=== PATIENT | male | born 1960 | race Caucasian/White ===

== ENCOUNTER 2020-01-06 11:33 | Emergency (ER) | payer SELFPAY ==
[2020-01-06] MEDS ORDERED: Acetaminophen/oxyCODONE 325-5 MG Tab PO ONE (12:05)
[2020-01-06] MEDS ORDERED: Ketorolac 60 MG/2 ML SDV IM ONE (12:06)
[2020-01-06] MEDS ORDERED: Lidocaine 1% PF 2 ML SDV INJECT ONE (12:38)
[2020-01-06] MEDS ORDERED: Lidocaine 1% 2 ML ONE (12:39)
--- NOTE | 2020-01-06 13:10 | CR ---
Indication: Fell off ladder Technique: Two views left ankle Comparison: No comparison studies are available Findings : Normal alignment. Talar dome is intact. No acute fractures seen. Dictated by Roseann Yang MD @ Jan 06 2020 1:08PM Signed by Dr. Roseann Yang @ Jan 06 2020 1:09PM
--- NOTE | 2020-01-06 13:10 | CR ---
HISTORY: Fall. TECHNIQUE: Three views of the left hand. COMPARISON: No prior. FINDINGS: There is dorsal and ulnar dislocation of the middle phalanx of the small finger with respect to the head of the proximal phalanx of that digit. There is a tiny focus of ossification adjacent to the head of the proximal phalanx of that digit which could reflect a tiny fracture though is of uncertain chronicity. Mild degenerative changes otherwise. IMPRESSION: 1. Small finger PIP joint dislocation. 2. Small focus of ossification adjacent to the head of the proximal phalanx of the small finger may reflect sequelae of tiny fracture though is of uncertain chronicity. 3. Degenerative changes otherwise. Dictated by Regino Elizabeth MD @ 01/06/2020 1:08:39 PM Dictated by: Regino Elizabeth MD @ 01/06/2020 13:08:43 (Electronically Signed)
--- NOTE | 2020-01-06 13:14 | CR ---
indication: Fell off ladder Technique: Two views left foot Comparison: No comparison Findings: Normal alignment. No acute fractures. Degenerative for change of the 1st MTP joint. Dictated by Roseann Yang MD @ Jan 06 2020 1:09PM Signed by Dr. Roseann Yang @ Jan 06 2020 1:13PM
[2020-01-06] MEDS ORDERED: ceFAZolin 2 GM in Premix Bag 1 BAG IV ONE (14:00)
[2020-01-06] MEDS ORDERED: ceFAZolin 1 GM Vial IM ONE (14:09)
[2020-01-06] MEDS ORDERED: Water For Injection, Sterile 20 ML ONE (14:13)
--- NOTE | 2020-01-06 14:13 | CR ---
INDICATION: Post reduction. TECHNIQUE: Three views of the left hand. COMPARISON: Left hand x-rays performed earlier today. FINDINGS: Interval reduction of the little finger PIP dislocation. No fracture evident. No other significant abnormality noted. IMPRESSION: Post reduction of the little finger dislocation. Dictated by Sammy Rm MD @ Jan 06 2020 2:10PM Signed by Dr. Sammy Rm @ Jan 06 2020 2:12PM
--- NOTE | 2020-01-06 14:15 | EDM.PDOC ---
ED HPI GENERAL MEDICAL PROBLEM - General Chief Complaint: Upper Extremity Injury/Pain Stated Complaint: LEFT HAND PINKY FINGER INJURY Time Seen by Provider: 01/06/20 11:35 Source of Information: Reports: Patient History Limitations: Reports: No Limitations - History of Present Illness INITIAL COMMENTS - FREE TEXT/NARRATIVE: HISTORY AND PHYSICAL: History of present illness: Patient is a 59-year-old male who presents to the ED today with concern of left hand pinky finger injury, left ankle and left foot injury that occurred just prior to travel to the ED. Patient states he was up on a ladder outside when the ladder slipped on ice and came out from under him. Patient states he slid down the ladder wrong with his left foot/ankle and tried to catch himself with his left hand. Patient states his left hand pinky finger took the brunt of the fall and he did not hit his head or lose consciousness. Patient states he was approximately 6 feet up on the ladder. Patient states he is up-to-date on his tetanus within the last 5 years. Denies any other symptoms or concerns. Patient denies fever, chills, chest pain, shortness of breath, or cough. Denies headache, neck stiff ness, change in vision, syncope, or near syncope. Denies nausea, vomiting, abdominal pain, diarrhea, constipation, or dysuria. Has not noted any blood in urine or stool. Patient has been eating and drinking appropriately. Review of systems: As per history of present illness and below otherwise all systems reviewed and negative. Past medical history: As per history of present illness and as reviewed below otherwise noncontributory. Surgical history: As per history of present illness and as reviewed below otherwise noncontributory. Social history: See social history for further information Family history: As per history of present illness and as reviewed below otherwise noncontributory. Physical exam: General: Patient is alert, oriented, and in no acute distress. Patient sitting on exam table, does appear to be in pain holding left hand. HEENT: Atraumatic, normocephalic, pupils equal and reactive bilaterally, negative for conjunctival pallor or scleral icterus, mucous membranes moist, TMs normal bilaterally, throat clear, neck supple, nontender, trachea midline. No drooling or trismus noted. No meningeal signs. No hot potato voice noted. Lungs: Clear to auscultation, breath sounds equal bilaterally, chest nontender. Heart: S1S2, regular rate and rhythm without overt murmur Abdomen: Soft, nondistended, nontender. Negative for masses or hepatosplenomegaly. Negative for costovertebral tenderness. Pelvis: Stable nontender. Genitourinary: Deferred. Rectal: Deferred. Skin: Intact, warm, dry. No lesions or rashes noted. Extremities: The patient has an obvious dislocation of the left hand pinky finger with pain to this finger. There is an overlying abrasion over the area of dislocation. He does have full sensation and cap refill <2 seconds of the digit. Patient has full ROM of remainder of digits of the LUE with cap refill < 2 seconds. Patient has full ROM of RUE and bilateral lower extremities without difficulty or pain. Patient does have a subungual hematoma of the left big toe. Bilateral DP/PT intact. There are superficial abrasions of the left ankle and foot without bleeding. Otherwise, atraumatic, negative for cords or calf pain. Neurovascular unremarkable. Neuro: Awake, alert, oriented. Cranial nerves II through XII unremarkable. Cerebellum unremarkable. Motor and sensory unremarkable throughout. Exam nonfocal. Notes: Verbal consent obtained to drain subungual hematoma. Electrocautery pen used to make a small hole in the left toenail/subungual hematoma with small tricking of blood. Patient tolerated procedure well. See procedure note below for dislocation reduction. I did call and speak to the hand specialist at [facility] in [place], Dr. Medeiros and thoroughly discussed patients case. He states to splint patient, treat for open fracture, and to call the clinic tomorrow morning to get a follow up appointment with Dr. Crooks. Signs and symptoms that would prompt return to the ED thoroughly discussed with patient. Discussed the importance for follow-up with the hand specialist. Voices understanding and is agreeable to plan of care. Denies any further questions or concerns at this time. Diagnostics: Hand XR, foot XR, ankle XR Therapeutics: Ancef, joint reduction, electrocautery release hematoma, percocet, norco (sent home with 2 tabs), digital block (lidocaine), toradol Prescription: Keflex Impression: PIP joint dislocation, reduced, left, 5th digit Proximal phalanx fracture, left, 5th digit Subungual hematoma, first digit, left foot Plan: 1. Alternate ibuprofen and tylenol as directed for pain and discomfort. Keep splint on until follow up with the hand specialist. 2. Follow up with the hand specialist, Dr. Crooks as discussed. The number as been provided above for you to call and establish an appointment time. 3. Return to the ED as needed and as discussed. Definitive disposition and diagnosis as appropriate pending reevaluation and review of above. left pinky Pain Score (Numeric/FACES): 7 - Related Data Allergies Allergy/AdvReac Type Severity Reaction Status Date / Time No Known Allergies Allergy Verified 01/06/20 12:00 Home Meds: Home Meds cephALEXin [Keflex] 500 mg PO Q8H 10 Days #30 cap 01/06/20 [Rx] Past Medical History - Past Health History Medical/Surgical History: Denies Medical/Surgical History Social & Family History - Tobacco Use Tobacco Use Status *Q: Never Tobacco User - Recreational Drug Use Recreational Drug Use: No Review of Systems - Review of Systems Review Of Systems: Comprehensive ROS is negative, except as noted in HPI. ED EXAM, GENERAL - Physical Exam Exam: See Below (see dictation) ED TRAUMA EXTREMITY PROCEDURES - Joint Reduction Left Fingers Sedation: Digital Block Local Anesthesia - Lidocaine (Xylocaine): 1% Plain Local Anesthetic Volume: 2cc Pre-Procedure NV Status: Normal Post-Procedure NV Status: Normal Technique: Traction/Counter Traction Number of Attempts: 1 Post-Reduction Imaging: Completely Reduced, Fracture Seen Joint Reduction Complications: No Course - Vital Signs Last Recorded V/S: Last Vital Signs Temp 98 F 01/06/20 11:57 Pulse 99 01/06/20 11:57 Resp 16 01/06/20 11:57 BP 170/94 H 01/06/20 11:57 Pulse Ox 96 01/06/20 11:57 - Orders/Labs/Meds Meds: Medications Discontinued Medications Generic Name Dose Route Start Last Admin Trade Name Freq PRN Reason Stop Dose Admin Hydrocodone Bitart/Acetaminophen 2 tab 01/06/20 14:17 Sterling 325-5 Mg PO 01/06/20 14:18 ONETIME ONE Cefazolin Sodium 2 gm 01/06/20 14:09 01/06/20 14:23 Ancef IM 01/06/20 14:10 2 gm ONETIME ONE Administration Lidocaine HCl Confirm 01/06/20 12:39 01/06/20 12:45 Xylocaine-Mpf 1% Administered 01/06/20 12:40 Not Given Dose 2 mls @ as directed .ROUTE .STK-MED ONE Cefazolin Sodium/Dextrose 2 gm 50 mls @ 100 mls/hr 01/06/20 14:00 01/06/20 14:26 / Premix IV 01/06/20 14:29 Not Given ONETIME ONE Sterile Water Confirm 01/06/20 14:13 01/06/20 14:25 Sterile Water For Injection Administered 01/06/20 14:14 Not Given Dose 20 mls @ as directed .ROUTE .STK-MED ONE Ketorolac Tromethamine 60 mg 01/06/20 12:06 01/06/20 12:16 Toradol IM 01/06/20 12:07 60 mg ONETIME ONE Administration Lidocaine HCl 2 ml 01/06/20 12:38 01/06/20 12:44 Xylocaine-Mpf 1% INJECT 01/06/20 12:39 2 ml ONETIME ONE Administration Oxycodone/Acetaminophen 1 tab 01/06/20 12:05 01/06/20 12:15 Percocet 325-5 Mg PO 01/06/20 12:06 1 tab ONETIME ONE Administration Sterile Water 5 ml 01/06/20 14:25 01/06/20 14:25 Sterile Water For Injection INJECT 01/06/20 14:26 5 ml ONETIME ONE Administration Departure - Departure Time of Disposition: 14:18 Disposition: Home, Self-Care 01 Clinical Impression: Subungual hematoma Dislocation of PIP joint of finger Qualifiers: Encounter type: initial encounter Qualified Code(s): S63.289A - Dislocation of proximal interphalangeal joint of unspecified finger, initial encounter Open fracture of phalanx of digit of hand Qualifiers: Encounter type: initial encounter Qualified Code(s): S62.609B - Fracture of unspecified phalanx of unspecified finger, initial encounter for open fracture - Discharge Information Prescriptions: cephALEXin [Keflex] 500 mg PO Q8H 10 Days #30 cap Instructions: Finger or Thumb Dislocation, [id number], Cast or Splint Care, Adult, [id number] Referrals: PCP,None [Primary Care Provider] - Forms: ED Department Discharge Additional Instructions: The following information is given to patients seen in the emergency department who are being discharged to home. This information is to outline your options for follow-up care. We provide all patients seen in our emergency department with a follow-up referral. The need for follow-up, as well as the timing and circumstances, are variable depending upon the specifics of your emergency department visit. If you don't have a primary care physician on staff, we will provide you with a referral. We always advise you to contact your personal physician following an emergency department visit to inform them of the circumstance of the visit and for follow-up with them and/or the need for any referrals to a consulting specialist. The emergency department will also refer you to a specialist when appropriate. This referral assures that you have the opportunity for follow-up care with a specialist. All of these measure are taken in an effort to provide you with optimal care, which includes your follow-up. Under all circumstances we always encourage you to contact your private physician who remains a resource for coordinating your care. When calling for follow-up care, please make the office aware that this follow-up is from your recent emergency room visit. If for any reason you are refused follow-up, please contact the [facility] Emergency Department at and asked to speak to the emergency department charge nurse. [facility] [address] [place] [id number] [address] [facility], Hand and Wrist Surgery, Dr. Crooks [address] [place] [id number] PH: [phone] 1. Alternate ibuprofen and tylenol as directed for pain and discomfort. Keep splint on until follow up with the hand specialist. 2. Follow up with the hand specialist, Dr. Crooks as discussed. The number as been provided above for you to call and establish an appointment time. 3. Return to the ED as needed and as discussed. Sepsis Event Note (ED) - Evaluation Sepsis Screening Result: No Definite Risk - Focused Exam Vital Signs: Vital Signs Temp Pulse Resp BP Pulse Ox 11/26/20 11:57 98 F 99 16 170/94 H 96
[2020-01-06] MEDS ORDERED: Acetaminophen/HYDROcodone 325-5 MG Tab PO ONE (14:17)
[2020-01-06] MEDS ORDERED: Water For Injection, Sterile 20 ML SDV INJECT ONE (14:25)
== END 2020-01-06 14:51 | disposition home or self-care (01) ==
LOC: MW.ED 11:33
DX: S62.617B Displaced fracture of proximal phalanx of left little finger, initial encounter for open fracture (principal); S63.287A Dislocation of proximal interphalangeal joint of left little finger, initial encounter; S90.112A Contusion of left great toe without damage to nail, initial encounter; W00.0XXA Fall on same level due to ice and snow, initial encounter
CPT/HCPCS: 11740; 26770; 73120; 73130; 73600; 73620; 96372; 99283; A9270; J0690; J1885; J2001